=== PATIENT | female | born 2000 | race Two or more races ===

== ENCOUNTER 2024-12-12 11:37 | Inpatient (IN) | payer BC, OTHER ==
[~2024-12-12] VITALS: Ht 157.5 cm; Wt 126.2 kg
--- NOTE | 2024-12-12 11:51 | ED.PDOC ---
SOB-HPI HPI Comments 24 year old female presents to the ED with a chief complaint of shortness of breath onset 11/15/2024. Patient states she began experiencing shortness of breath on 11/15/24, saw PCP and was prescribed steroids, finished prescription. She noticed symptoms had not improved, saw PCP 2 days ago and was prescribed another round of steroids, did not picker operator prescription. Patient states she is currently experiencing nasal congestion, runny nose, noticed shortness of breath worsened. Upon ED arrival, O2 sat was 97% on RA, HR was 130. PMHx asthma. Denies chest pain, dizziness, headache, blurry vision, fever, chills, dysuria, hematuria, nausea, vomiting, diarrhea. No other symptoms or modifying factors present at this time. Chief Complaint: Shortness of Breath Time Seen by MD: 11:45 Reviewed notes: Medications, Allergies Information Source: Patient Mode of Arrival: Ambulatory Severity: Moderate Timing: Days Duration: Since onset Context: At Rest PE Risk Factors: None History of: Asthma Prehospital treatment: None Modifying Factors: Nothing Associated Signs and Symptoms: Nasal Congestion Past Medical History PAST MEDICAL HISTORY: Asthma Surgical History: Denies all surgeries POWERHOUSE ELECTRICIAN APPRENTICE History: No Pertinent POWERHOUSE ELECTRICIAN APPRENTICE History Family History Family History: Reviewed,noncontributory to illness, No family hx of Cancer, No family hx of DM, No family hx of Heart maria eugenia, No family hx of HTN, No family hx ofKidney maria eugenia, No family hx of Liver maria eugenia, No family hx of Lung maria eugenia, No family hx of Stroke Social History Smoker: Non-Smoker Alcohol: Denies ETOH Use Drugs: Denies Drug Use Lives In: Home Constitutional: denies: chills, diaphoresis, fatigue, fever, malaise, sweats, weakness, others EENTM: reports: nose congestion; denies: blurred vision, double vision, ear bleeding, ear discharge, ear drainage, ear pain, ear ringing, eye pain, eye redness, hearing loss, mouth pain, mouth swelling, nasal discharge, nose bleeding, nose pain, photophobia, tearing, throat pain, throat swelling, voice changes, others Respiratory: reports: shortness of breath; denies: cough, hemoptysis, orthopnea, SOB at rest, SOB with excertion, stridor, wheezing, others Cardiovascular: reports: others (tachycardia); denies: chest pain, dizzy spells, diaphoresis, Dyspnea on exertion, edema, irregular heart beat, left arm pain, lightheadedness, palpitations, PND, syncope Gastrointestinal: denies: abdomen distended, abdominal pain, blood streaked bowels, constipated, diarrhea, dysphagia, difficulty swallowing, hematemesis, melena, nausea, poor appetite, poor fluid intake, rectal bleeding, rectal pain, vomiting, others Genitourinary: denies: abnormal vagina bleeding, burning, dyspareunia, dysuria, flank pain, frequency, hematuria, incontinence, pain, , vagina discharge, urgency, others Neurological: denies: dizziness, fainting, headache, left sided numbness, left sided weakness, numbness, paresthesia, pre-existing deficit, right sided numbness, right sided weakness, seizure, speech problems, tingling, tremors, weakness, others Musculoskeletal: denies: back pain, gout, joint pain, joint swelling, muscle pain, muscle stiffness, neck pain, others Integumetry: denies: bruises, change in color, change in hair/nails, dryness, laceration, lesions, lumps, rash, wounds, others Allergic/Immunocompromised: denies: Difficulty Healing, Frequent Infections, Hives, Itching, others Hematologic/Lymphatic: denies: anemia, blood clots, easy bleeding, easy bruising, swollen glands, others Endocrine: denies: excessive hunger, excessive sweating, excessive thirst, excessive urination, flushing, intolerance to cold, intolerance to heat, unexplained weight gain, unexplained weight loss, others Psychiatric: denies: anxiety, bipolar disorder, depression, hopeless, panic disorder, schizophrenia, sleepless, suicidal, others All Other Systems: Reviewed and Negative Physical Exam General Appearance: Moderate Distress, Normal HEENT: Normal ENT Inspection, Pharynx Normal, TMs Normal Neck: Full Range of Motion, Non-Tender, Normal, Normal Inspection Respiratory: Chest Non-Tender, No Accessory Muscle Use, Wheezing Cardiovascular: No Edema, No JVD, No Murmur, No Gallop, Normal Peripheral Pulses, Tachycardia Breast Exam: Deferred Gastrointestinal: No Organomegaly, Non Tender, No Pulsatile Mass, Normal Bowel Sounds, Soft Genitalia: Deferred Pelvic: Deferred Rectal: Deferred Extremities: No calf tenderness, Normal capillary refill, Normal inspection, Normal range of motion, Non-tender, No pedal edema Musculoskeletal : Apperance: Normal Neurologic: Alert, vp customer service II-XII nml as Tested, No Motor Deficits, Normal Affect, Normal Mood, No Sensory Deficits Cerebellar Function: Normal Reflexes: Normal Skin: Dry, Normal Color, Warm Peripheral Pulses: 3+ Radial (R), 3+ Radial (L) Lymphatic: No Adenopathy Was a procedure done? Was a procedure done?: No Differential Dx Differential Diagnosis: Anxiety, Asthma, Bronchitis X-Ray, Labs, Meds, VS Vital Signs Date Time Temp Pulse Resp B/P (MAP) Pulse Ox O2 Delivery O2 Flow Rate FiO2 12/12/24 15:21 98.5 112 24 142/93 (109) 95 98.5 12/12/24 12:00 22 98 Room Air* 0 21 12/12/24 11:40 98.1 133 22 142/88 97 98.1 Lab Test 12/12/24 12:09 12/12/24 12:06 Range/Units White Blood Count 7.4 4.4-10.8 10^3/uL Red Blood Count 4.68 4.0-5.20 10^6/uL Hemoglobin 12.0 L 12.2-16.2 g/dL Hematocrit 37.0 36.0-46.0 % Mean Corpuscular Volume 79.0 L 80.0-100.0 fL Mean Corpuscular Hemoglobin 25.7 L 28.0-32.0 pg Mean Corpuscular Hemoglobin Concent 32.6 32.0-36.0 g/dL Red Cell Distribution Width 15.8 H 11.8-14.3 % Platelet Count 312 140-450 10^3/uL Mean Platelet Volume 8.0 6.9-10.8 fL Neutrophils (%) (Auto) 65.9 37.0-80.0 % Lymphocytes (%) (Auto) 23.6 10.0-50.0 % Monocytes (%) (Auto) 8.0 0.0-12.0 % Eosinophils (%) (Auto) 2.4 0.0-7.0 % Basophils (%) (Auto) 0.1 0.0-2.0 % Neutrophils # (Auto) 4.9 1.6-8.6 10 ^3/uL Lymphocytes # (Auto) 1.8 0.4-5.4 10 ^3/uL Monocytes # (Auto) 0.6 0-1.3 10 ^3/uL Eosinophils # (Auto) 0.2 0-0.8 10 ^3/uL Basophils # (Auto) 0 0-0.2 10 ^3/uL Nucleated Red Blood Cells 0.1 % Sodium Level 142 136-145 mmol/L Potassium Level 3.2 L 3.5-5.1 mmol/L Chloride Level 106 98-107 mmol/L Carbon Dioxide Level 25 20-31 mmol/L Anion Gap 11 5-15 Blood Urea Nitrogen 6 L 9-23 mg/dL Creatinine 0.90 0.550-1.02 mg/dL Glomerular Filtration Rate Calc 93 >90 mL/min BUN/Creatinine Ratio 6.7 L 10.0-20.0 Serum Glucose 167 H 74-106 mg/dL Calcium Level 9.0 8.7-10.4 mg/dL Troponin I High Sensitivity < 3 L </=34 ng/L Urine Color Pending Urine Clarity Pending Urine pH Pending Urine Specific [place] Pending Urine Protein Pending Urine Ketones Pending Urine Blood Pending Urine Nitrite Pending Urine Bilirubin Pending Urine Urobilinogen Pending Urine Leukocyte Esterase Pending Urine RBC Pending Urine Microscopic WBC Pending Urine Squamous Epithelial Cells Pending Urine Bacteria Pending Urine Glucose Pending Current Medications Medications (Trade) Dose Ordered Sig/Praveen Route Start Time Stop Time Status Last Admin Methylprednisolone Sodium Succinate (Solu Medrol) 125 mg ONCE ONCE IV 12/12/24 11:45 12/12/24 11:46 DC 12/12/24 12:19 Albuterol (Ventolin Medneb) 5 mg ONCE ONCE NEB 12/12/24 11:45 12/12/24 11:46 DC 12/12/24 12:00 Ipratropium [place] (Atrovent Medneb) 0.5 mg ONCE ONCE NEB 12/12/24 11:45 12/12/24 11:46 DC 12/12/24 12:00 Ceftriaxone Sodium 50 ml @ 100 mls/hr ONCE ONCE IV 12/12/24 11:45 12/12/24 12:14 DC 12/12/24 12:20 Magnesium Sulfate/ Dextrose 100 ml @ 100 mls/hr ONCE ONCE IV 12/12/24 12:30 12/12/24 13:29 DC 12/12/24 12:29 Patient alert. Came in because of shortness a breath. Vitals stable. Answering questions. Was given steroid. Was given breathing treatment. Given magnesium Has been battling shortness breath for almost a month. She is wheezing. WBC within normal limits. Tachycardia. Explained to the patient that she will be admitted for asthma exacerbation. Continue monitoring. [address] [address] Ph: [phone] DIAGNOSTIC IMAGING Diagnostic Imaging Report : [id number] Signed PATIENT: JUSTYNA SOLIS ACCT: [id number] UNIT: [id number] : 2000 LOC: ER ROOM / BED: / AGE / SEX: 24 / F ADM STATUS: REG ER SERVICE 1142 ORDERING PHYSICIAN: GLORIA BALDWIN MD PROCEDURE(s): CXRP - CHEST PORTABLE REASON: sob ORDER NUMBER(s): [id number], ACCESSION NUMBER(s): [id number] EXAM: XY CHEST PORTABLE Indication: sob Technique: Single frontal view of the chest was obtained Comparison: None FINDINGS: Lines and Tubes: None Lungs: No focal consolidation. Pleura: No effusion. No pneumothorax. Cardiomediastinal contours: Unremarkable Bones: No acute osseous abnormality. IMPRESSION: No acute cardiopulmonary disease. ATED BY: MALACHI WOO MD DICTATED DATE/TIME: 12/12/24 1206 SIGNED BY: MALACHI WOO MD SIGNED DATE/TIME: 12/12/24 120 CC: Time of 1ST Reevaluation: 12:15 Reevaluation 1ST: Unchanged Patient Education/Counseling: Diagnosis, Treatment, Prognosis Family Education/Counseling: No Family Present SEPSIS Sepsis Screen Date sepsis recognized/suspect: Dec 12, 2024 Time Sepsis recognized/suspect: 1144 Recent Procedure: No On Antibiotic Therapy: No Respiratory Rate >20: Yes Heart Rate >90: Yes Temp<36 C (96.8 F) or >38.3 C: No SBP <90 or MAP <65 mmHG: No New Acute Mental Status Change: No Is the patient on CPAP, BIPAP,: No Physician Orders Chest Portable (12/12/24 11:42) Urinalysis (12/12/24 11:42) Vital Signs Date Time Temp Pulse Resp B/P (MAP) Pulse Ox O2 Delivery O2 Flow Rate FiO2 12/12/24 15:21 98.5 112 24 142/93 (109) 95 98.5 12/12/24 12:00 22 98 Room Air* 0 21 12/12/24 11:40 98.1 133 22 142/88 97 98.1 Laboratory Tests Test 12/12/24 12:09 White Blood Count 7.4 10^3/uL (4.4-10.8) Medications Medications Dose Ordered Sig/Praveen Route Start Time Stop Time Status Last Admin Dose Admin Albuterol 5 mg ONCE ONCE NEB 12/12/24 11:45 12/12/24 11:46 DC 12/12/24 12:00 Ceftriaxone Sodium 50 ml @ 100 mls/hr ONCE ONCE IV 12/12/24 11:45 12/12/24 12:14 DC 12/12/24 12:20 Ipratropium [place] 0.5 mg ONCE ONCE NEB 12/12/24 11:45 12/12/24 11:46 DC 12/12/24 12:00 Magnesium Sulfate/ Dextrose 100 ml @ 100 mls/hr ONCE ONCE IV 12/12/24 12:30 12/12/24 13:29 DC 12/12/24 12:29 Methylprednisolone Sodium Succinate 125 mg ONCE ONCE IV 12/12/24 11:45 12/12/24 11:46 DC 12/12/24 12:19 Departure 1 Departure Time of Disposition: 14:22 Impression: Primary Impression: Asthma exacerbation Qualified Codes: J45.901 - Unspecified asthma with (acute) exacerbation Disposition: ADMITTED INPATIENT Admit to: Med Surg Condition: Guarded Critical Care Note Critical Care Time?: No Stability Stability form required: No Heart Score Heart Score: Heart Score Response (Comments) Value History N/A 0 EKG N/A 0 Age N/A 0 Risk Factors N/A 0 Troponin N/A 0 Total 0 I personally scribed for GLORIA BALDWIN MD ([email or web address]) on 12/12/24 at 11:51. Electronically submitted by No Darden ([email or web address]). I personally scribed for GLORIA BALDWIN MD ([email or web address]) on 12/12/24 at 15:33. Electronically submitted by No Darden ([email or web address]). GLORIA BALDWIN MD Dec 12, 2024 11:51
[2024-12-12] MEDS: IPRATROPIUM BROM 0.5 MG/2.5ML INH SOL NEB ONE (12:00)
[2024-12-12] MEDS: ALBUTEROL SULF 2.5 MG/0.5ML(0.5%) NEB SOLN NEB ONE ×2 (12:00→18:18)
--- NOTE | 2024-12-12 12:08 | DVH ---
EXAM: XY CHEST PORTABLE Indication: sob Technique: Single frontal view of the chest was obtained Comparison: None FINDINGS: Lines and Tubes: None Lungs: No focal consolidation. Pleura: No effusion. No pneumothorax. Cardiomediastinal contours: Unremarkable Bones: No acute osseous abnormality. IMPRESSION: No acute cardiopulmonary disease.
[2024-12-12] MEDS: methylPREDNISolone SOD SUCC 125 MG/2 ML VL IV ONE (12:19)
[2024-12-12] MEDS: cefTRIAXone 1GM/50ML D5W 50 ML IV ONE (12:20)
[2024-12-12 12:26] LABS: Mean Corpuscular Hemoglobin 25.7 pg (28.0-32.0); Mean Corpuscular Volume 79.0 fL (80.0-100.0)
[2024-12-12 12:29] LABS: Chloride 106 mmol/L (98-107); Hematocrit 37.0 % (36.0-46.0); Hemoglobin 12.0 g/dL (12.2-16.2); Nucleated Red Blood Cells % 0.1 %; Sodium 142 mmol/L (136-145)
[2024-12-12] MEDS: MAGNESIUM SULFATE 1GM/100ML 100 ML IV ONE (12:29)
[2024-12-12 12:30] LABS: Anion Gap 11 (5-15); Carbon Dioxide 25 mmol/L (20-31)
[2024-12-12 12:31] LABS: Calcium 9.0 mg/dL (8.7-10.4)
[2024-12-12 12:32] LABS: Potassium 3.2 mmol/L (3.5-5.1)
[2024-12-12 12:36] LABS: BUN/Creatinine Ratio 6.7 (10.0-20.0); Blood Urea Nitrogen 6 mg/dL (9-23); Glucose 167 mg/dL (74-106)
[2024-12-12 17:50] LABS: Urine Protein, UAD Negative (Negative)
[2024-12-12 19:29] VITALS: BP 142/93; PULSE 121; RESP 20; TEMP 98.5; O2SAT 98
[2024-12-12] MEDS ORDERED: MORPHINE SULFATE INJ 2 MG/ml SYRG IV PRN (19:30)
[2024-12-12] MEDS ORDERED: NITROGLYCERIN 0.4 MG SL TAB SL PRN (19:30)
[2024-12-12] MEDS: SODIUM CHLORIDE 0.9% 1,000 ML IV ONE (20:06)
[2024-12-12 21:03] LABS: Amphetamine Screen, Urine Neg (NEGATIVE); Barbiturate Scree,Urine Neg (NEGATIVE); Benzodiazephine Screen, Urine Neg (NEGATIVE); Cannabinoid Screen, Urine Neg (NEGATIVE); Cocaine Screen, Urine Neg (NEGATIVE); Opiate Scree,Urine Neg (NEGATIVE); Phencyclidine Screen, Urine Neg (NEGATIVE)
[2024-12-12 21:54] LABS: COVID19 ANTIGEN SOFIA FIA POSITIVE (NEGATIVE)
[2024-12-12] MEDS: ALBUTEROL SULF HFA 90MCG INH 200DOSE IN SCH (22:30)
[2024-12-12 22:48] VITALS: PULSE 127; RESP 22; O2SAT 98
[2024-12-12] MEDS: IPRATROPIUM BROM 0.5 MG/2.5ML INH SOL NEB SCH (22:48)
[2024-12-12] MEDS: ALBUTEROL SULF 2.5 MG/0.5ML(0.5%) NEB SOLN NEB SCH (22:48)
[2024-12-12] MEDS: BUDESONIDE (INHALATION) 0.5 MG/2 ML NEB NEB SCH (22:49)
[2024-12-12 22:56] VITALS: PULSE 129; RESP 22; O2SAT 100
[2024-12-13] VITALS (10 sets, daily range): BP systolic 128–174; BP diastolic 75–111; PULSE 106–133; RESP 18–92; TEMP 97.4–98.3; O2SAT 91–99
[2024-12-13] MEDS: MONTELUKAST SODIUM 10 MG TAB PO SCH (00:35)
[2024-12-13] MEDS: methylPREDNISolone SOD SUCC 125 MG/2 ML VL IV SCH (00:38)
[2024-12-13] MEDS: SODIUM CHLORIDE 0.9% 1,000 ML IV SCH ×2 (00:45→16:31)
--- NOTE | 2024-12-13 00:51 | DVHHP2 ---
Admitting Diagnosis: Acute Asthma Exacerbation, COVID -19 History of Present Illness History Source: Patient Exam Limitations: No limitations HPI Ms. Harlan Martin is a 24 year old female with a history of asthma who presents with a chief complaint of shortness of breath onset 11/15/2024. Patient states she began experiencing shortness of breath on 11/15/24, saw PCP and was prescribed steroids, finished prescription. She noticed symptoms had not improved, saw PCP 2 days ago and was prescribed another round of steroids, did not chicken picker prescription. Patient states she is currently experiencing nasal congestion, runny nose, noticed shortness of breath worsened. Patient reports she has been referred by her PCP to an ENT for her tonsils which she has been told are "pretty big". Patient denies any difficulty swallowing. Patient denies chest pain, dizziness, headache, blurry vision, fever, chills, dysuria, hematuria, nausea, vomiting, diarrhea. Home Meds Reported Medications Trazodone HCl (Trazodone Hydrochorlide) 150 Mg Tab, PO, TAB 12/13/24 Cetirizine HCl (Cetirizine Hydrochloride) 10 Mg Tab, 10 MG PO, TAB 12/13/24 Past Medical History Cardiac: No pertinent Hx Pulmonary: Asthma Central Nervous System: No pertinent Hx GI: No pertinent Hx Hemotology/Oncology: No pertinent Hx Hepatobiliary: No pertinent Hx Psychiatric: No pertinent Hx Musculoskeletal: No pertinent Hx Rheumotologic: No pertinent Hx Infectious Disease: No peritnent Hx ENT: No pertinent Hx Renal/: No pertinent Hx Endocrine: No pertinent Hx Dermatology: No pertinent Hx Smoker: No Hx (Negative) Alocohol: None Drugs: None Lives with: With family Domestic Violence: Neg Review of Systems Constitutional: No symptom reported Ears, Nose, & Throat: No symptom reported Eyes: No symptom reported Pulmonary/Respiratory: Dyspnea Cardiovascular: No symptom reported Gastrointestinal: No symptom reported Genitourinary: No symptom reported Musculoskeletal: No symptom reported Skin: No symptom reported Psychiatric: No symptom reported Endocrine: No symptom reported Hemotologic/Lymphatic: No symptom reported H&P Exam Vital Signs Vital Signs Date Time Temp Pulse Resp B/P (MAP) Pulse Ox O2 Delivery O2 Flow Rate FiO2 12/13/24 00:39 99.4 116 20 139/71 (93) 97 99.4 12/12/24 22:48 Room Air 8/8/25 22:48 0 21 General Appeara: Well developed, Well nourished, Normal Appearance Head Exam: Normal inspection Neck Exam: Normal inspection, Non-tender, Normal alignment Eye Exam: bilateral eye Normal inspection, bilateral eye PERRL, bilateral eye EOMI Ear Exam: bilateral ear Auricle normal Nasal Exam: Normal inspection Mouth: Normal Inspection Pulmonary/Respiratory: Normal inspection, Chest non-tender, Decreased breath sounds Cardiovascular/Chest: Normal inspection, Normal Rhythm, Tachycardia Peripheral Pulses: 2+ dorsalis pedis (R), 2+ dorsalis pedis (L), 2+ Radial (R), 2+ Radial (L) Abdominal Exam: Normal bowel sounds, Soft, No tenderness Abdominal Pain Onset Location: LLQ Back Exam: Normal inspection 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 HELPER Exam: Normal hearing, Normal speech, PERRL Neuro/Mental St: Alert, Oriented Appearance: Appropriate appearance, Appropriate insight Eye contact/ Speech: Cooperative, Good eye contact, Normal speech Thoughts/Psych: Normal thought pattern Skin Exam: Normal inspection, Normal color, Warm/dry SEPSIS Sepsis Screen Date sepsis recognized/suspect: Dec 13, 2024 Time Sepsis recognized/suspect: 003 Recent Procedure: No On Antibiotic Therapy: No Respiratory Rate >20: No Heart Rate >90: Yes Temp<36 C (96.8 F) or >38.3 C: No SBP <90 or MAP <65 mmHG: No New Acute Mental Status Change: No Is the patient on CPAP, BIPAP,: No Physician Orders Admit (12/12/24 19:23) Regular Diet (12/13/24 Breakfast) *Consult / (12/12/24 19:23) Basic Metabolic Panel (12/13/24 04:00) Nitroglycerin Sublingual (Ntrostat Subli (12/12/24 19:30) Morphine Sulfate Injection (12/12/24 19:30) Stat Ekg For Chest Pain (12/12/24 19:23) Notify Of Changes From Base (12/12/24 19:23) Lumber Marker For 24 Hours (12/12/24 19:23) Emergency Dysrhythmia Protocol (12/12/24 19:23) Rhythm Strips Once Every Shift (12/12/24 19:23) Oxygen By Nasal Cannula (12/12/24 19:23) Methylprednisolone Sod Succ (Solu Medrol (12/13/24 00:00) Budesonide (Inhalation) (Pulmicort) (12/12/24 22:00) Ipratropium Medneb (Atrovent Medneb) (12/12/24 22:00) Albuterol Medneb (Ventolin Medneb) (12/12/24 22:00) Ceftriaxone 1gm/50ml D5w (Rocephin) (12/13/24 09:00) Famotidine Tablet (Pepcid Tablet) (12/13/24 10:00) Urine (12/12/24 ) Sodium Chloride 0.9% (12/12/24 19:30) Montelukast Tablet (Singulair Tablet) (12/12/24 22:00) Zinc Sulfate (12/13/24 10:00) Ascorbic Acid Tablet (Vitamin C Tablet) (12/13/24 10:00) Cholecalciferol Tablet (Vitamin D3 Table (12/13/24 10:00) Sodium Chloride 0.9% (12/13/24 00:45) Vital Signs Date Time Temp Pulse Resp B/P (MAP) Pulse Ox O2 Delivery O2 Flow Rate FiO2 12/13/24 00:39 99.4 116 20 139/71 (93) 97 99.4 12/12/24 22:56 129 22 100 12/12/24 22:48 98 Room Air 12/12/24 22:48 127 22 98 12/12/24 22:48 98 Room Air* 0 21 12/12/24 20:43 98.1 138 21 156/82 (106) 97 98.1 12/12/24 19:29 98.5 121 20 142/93 98 21 98.5 12/12/24 18:18 22 98 Room Air* 0 21 21 Medications Medications Dose Ordered Sig/Praveen Route Start Time Stop Time Status Last Admin Dose Admin Albuterol 2.5 mg Q4HWA NEB 12/12/24 22:00 12/12/24 22:48 2.5 MG Albuterol 20 mg ONCE ONCE NEB 12/12/24 18:00 12/12/24 18:01 DC 12/12/24 18:18 20 MG Budesonide 0.5 mg BID NEB 12/12/24 22:00 12/12/24 22:49 0.5 MG Ipratropium [place] 0.5 mg Q4HWA NEB 12/12/24 22:00 12/12/24 22:48 0.5 MG Methylprednisolone Sodium Succinate 60 mg Q6HR IV 12/13/24 00:00 12/13/24 00:38 60 MG Montelukast Sodium 10 mg HS PO 12/12/24 22:00 12/13/24 00:35 10 MG Labs/Xrays Labs Test 12/12/24 20:59 12/12/24 18:50 12/12/24 18:08 12/12/24 12:09 Range/Units Influenza Type A Antigen Negative Negative Influenza Type B Antigen Negative Negative SARS-CoV-2 Antigen (Rapid) Positive NEGATIVE D-Dimer, Quantitative 0.40 0.0-0.49 mg/L FEU White Blood Count 7.4 4.4-10.8 10^3/uL Red Blood Count 4.68 4.0-5.20 10^6/uL Hemoglobin 12.0 L 12.2-16.2 g/dL Hematocrit 37.0 36.0-46.0 % Mean Corpuscular Volume 79.0 L 80.0-100.0 fL Mean Corpuscular Hemoglobin 25.7 L 28.0-32.0 pg Mean Corpuscular Hemoglobin Concent 32.6 32.0-36.0 g/dL Red Cell Distribution Width 15.8 H 11.8-14.3 % Platelet Count 312 140-450 10^3/uL Mean Platelet Volume 8.0 6.9-10.8 fL Neutrophils (%) (Auto) 65.9 37.0-80.0 % Lymphocytes (%) (Auto) 23.6 10.0-50.0 % Monocytes (%) (Auto) 8.0 0.0-12.0 % Eosinophils (%) (Auto) 2.4 0.0-7.0 % Basophils (%) (Auto) 0.1 0.0-2.0 % Neutrophils # (Auto) 4.9 1.6-8.6 10 ^3/uL Lymphocytes # (Auto) 1.8 0.4-5.4 10 ^3/uL Monocytes # (Auto) 0.6 0-1.3 10 ^3/uL Eosinophils # (Auto) 0.2 0-0.8 10 ^3/uL Basophils # (Auto) 0 0-0.2 10 ^3/uL Nucleated Red Blood Cells 0.1 % Sodium Level 142 136-145 mmol/L Potassium Level 3.2 L 3.5-5.1 mmol/L Chloride Level 106 98-107 mmol/L Carbon Dioxide Level 25 20-31 mmol/L Anion Gap 11 5-15 Blood Urea Nitrogen 6 L 9-23 mg/dL Creatinine 0.90 0.550-1.02 mg/dL Glomerular Filtration Rate Calc 93 >90 mL/min BUN/Creatinine Ratio 6.7 L 10.0-20.0 Serum Glucose 167 H 74-106 mg/dL Calcium Level 9.0 8.7-10.4 mg/dL Troponin I High Sensitivity < 3 L </=34 ng/L Test 12/12/24 12:06 Range/Units Urine Color Colorless Yellow Urine Clarity Clear Clear Urine pH 5.0 5.0-9.0 Urine Specific [place] 1.008 1.001-1.035 Urine Protein Negative Negative Urine Ketones Negative Negative Urine Blood Negative Negative /uL Urine Nitrite Negative Negative Urine Bilirubin Negative Negative Urine Urobilinogen Normal Negative mg/dL Urine Leukocyte Esterase Negative Negative /uL Urine RBC None seen 0 - 4 /hpf Urine Microscopic WBC 2 0-5 /HPF Urine Squamous Epithelial Cells Moderate <5 /hpf Urine Bacteria None seen None Seen /hpf Urine Glucose Normal Normal mg/dL Urine Opiates Screen Neg NEGATIVE Urine Fentanyl Screen Neg NEGATIVE Urine Barbiturates Screen Neg NEGATIVE Urine Phencyclidine Screen Neg NEGATIVE Urine Amphetamines Screen Neg NEGATIVE Urine Benzodiazepines Screen Neg NEGATIVE Urine Cocaine Screen Neg NEGATIVE Urine Cannabinoids Screen Neg NEGATIVE Assessment/Plan Problem List: (1) COVID-19 (2) Asthma exacerbation Plan This is a 24 yo female with known history of asthma who presents to the hospital with shortness of breath. Patient found to have 1. Acute Asthma Exacerbation 2. COVID -19 Plan Admit Telemetry unit Pulmonology consultation, IV steroids, Bronchodilators Broad Spectrum IV antibiotic GI ppx PO Vitamin C, D, Zinc IV Fluids NS Supplemental oxygen as needed to keep 02 saturations above 92% Discussed all above with patient who verbalizes agreement and understanding of care plan. All questions were answered. Discussed with admitting/supervising MD. Plan discussed with: Patient, Other Code Visit Code Visit Total Time (mins): 45 Additional Comments Additional Comments Additional Comments Patient is seen and evaluated by nurse practitioner and admitted patch washer. I have evaluated her later today. I agree with the nurse practitioner's evaluation, documentation, assessment and care plan as outlined. Acute asthma exacerbation with a COVID-19 infection Morbid obesity with a BMI 49 Patient is started on remdesivir treatment for COVID today. Continue IV steroids breathing treatments and rest of supportive care and treatment as it she is on for her asthma exacerbation. Patient counseled and educated regarding diet exercise weight loss. Once patient recovers from her acute problems consider referring her to composite bond worker for outpatient sleep studies to rule out obesity hypoventilation syndrome/sleep apnea. Discussed with the patient regarding care plan. URI CHAMBERLAIN Dec 13, 2024 00:51 RENETTA PUENTE MD Dec 13, 2024 15:47
[2024-12-13 04:19] LABS: Calcium 9.5 mg/dL (8.7-10.4); Chloride 104 mmol/L (98-107); Potassium 3.7 mmol/L (3.5-5.1); Sodium 142 mmol/L (136-145)
[2024-12-13 04:20] LABS: Anion Gap 15 (5-15); Carbon Dioxide 23 mmol/L (20-31)
[2024-12-13 04:25] LABS: BUN/Creatinine Ratio 10.6 (10.0-20.0); Blood Urea Nitrogen 9 mg/dL (9-23)
[2024-12-13 04:26] LABS: Glucose 188 mg/dL (74-106)
[2024-12-13] MEDS ORDERED: REMDESIVIR PER PHARMACY 0 ML IV SCH (10:00)
[2024-12-13] MEDS ORDERED: TRAZ150T84 PO (10:23)
[2024-12-13] MEDS ORDERED: CETI-120 PO (10:23)
[2024-12-13] MEDS: ZINC SULFATE 220mg CAP or TAB PO SCH (11:44)
[2024-12-13] MEDS: FAMOTIDINE 20 MG TAB PO SCH (11:44)
[2024-12-13] MEDS: ASCORBIC ACID 500 MG TAB PO SCH (11:44)
[2024-12-13] MEDS: CHOLECALCIFEROL (VITD3) 1,000UNIT=25mCg TAB PO SCH (11:44)
[2024-12-13] MEDS: REMDESIVIR 200mg in NS 210mL LOADING DOSE ADULT IV ONE (13:32)
[2024-12-13] MEDS: ENOXAPARIN SOD 40 MG/0.4 ML SYRINGE SC ONE (16:32)
--- NOTE | 2024-12-13 17:12 | DVHINCON2 ---
Date of service: Dec 13, [address] Whitehead Reason for Consultation Acute respiratory failure History of Present Illness History Source: Patient HPI Patient is a 24-year old lady with a history of asthma who presented with shortness of breath x1 month. She was seen previous as outpatient where she received course of steroids however did not experience improvement in symptoms. Patient presented to the emergency room with wheezing and she tested positive for covid. Pulmonology was consulted to assist in management. Home Meds Reported Medications Trazodone HCl (Trazodone Hydrochorlide) 150 Mg Tab, PO, TAB 12/13/24 Cetirizine HCl (Cetirizine Hydrochloride) 10 Mg Tab, 10 MG PO, TAB 12/13/24 Past Medical History Cardiac: No pertinent Hx Pulmonary: Asthma Central Nervous System: No pertinent Hx GI: No pertinent Hx Hemotology/Oncology: No pertinent Hx Hepatobiliary: No pertinent Hx Psychiatric: No pertinent Hx Musculoskeletal: No pertinent Hx Rheumotologic: No pertinent Hx Infectious Disease: No peritnent Hx ENT: No pertinent Hx Renal/: No pertinent Hx Endocrine: No pertinent Hx Dermatology: No pertinent Hx Past Surgical History: No pertinent Hx Family History: No pertinent Hx Smoker: No Hx (Negative) Alocohol: None Drugs: None Lives with: With family Domestic Violence: Neg Review of Systems Constitutional: No symptom reported Ears, Nose, & Throat: No symptom reported Eyes: No symptom reported Pulmonary/Respiratory: Dyspnea Cardiovascular: No symptom reported Gastrointestinal: No symptom reported Genitourinary: No symptom reported Musculoskeletal: No symptom reported Skin: No symptom reported Psychiatric: No symptom reported Endocrine: No symptom reported Hemotologic/Lymphatic: No symptom reported H&P Exam Vital Signs Vital Signs Date Time Temp Pulse Resp B/P (MAP) Pulse Ox O2 Delivery O2 Flow Rate FiO2 12/13/24 14:53 124 18 94 12/13/24 14:53 Nasal Cannula* 2 28 12/13/24 10:00 98.3 139/93 (108) 98.3 General Appeara: Well developed, Well nourished, Normal Appearance Head Exam: Normal inspection Neck Exam: Normal inspection, Non-tender, Normal alignment Eye Exam: bilateral eye Normal inspection, bilateral eye PERRL, bilateral eye EOMI Ear Exam: bilateral ear Auricle normal, bilateral ear Canal normal, bilateral ear TM normal Nasal Exam: Normal inspection Mouth: Normal Inspection Pulmonary/Respiratory: Decreased breath sounds Cardiovascular/Chest: Normal inspection Peripheral Pulses: 4+ Radial (R), 4+ Radial (L), 4+ Brachial (R), 4+ Brachial (L) Abdominal Exam: Normal bowel sounds Labs/Xrays Labs Test 12/13/24 03:28 12/12/24 20:59 12/12/24 18:50 12/12/24 18:08 Range/Units Sodium Level 142 136-145 mmol/L Potassium Level 3.7 3.5-5.1 mmol/L Chloride Level 104 98-107 mmol/L Carbon Dioxide Level 23 20-31 mmol/L Anion Gap 15 5-15 Blood Urea Nitrogen 9 9-23 mg/dL Creatinine 0.85 0.550-1.02 mg/dL Glomerular Filtration Rate Calc 99 >90 mL/min BUN/Creatinine Ratio 10.6 10.0-20.0 Serum Glucose 188 H 74-106 mg/dL Calcium Level 9.5 8.7-10.4 mg/dL Influenza Type A Antigen Negative Negative Influenza Type B Antigen Negative Negative SARS-CoV-2 Antigen (Rapid) Positive NEGATIVE D-Dimer, Quantitative 0.40 0.0-0.49 mg/L FEU Test 12/12/24 12:09 12/12/24 12:06 Range/Units White Blood Count 7.4 4.4-10.8 10^3/uL Red Blood Count 4.68 4.0-5.20 10^6/uL Hemoglobin 12.0 L 12.2-16.2 g/dL Hematocrit 37.0 36.0-46.0 % Mean Corpuscular Volume 79.0 L 80.0-100.0 fL Mean Corpuscular Hemoglobin 25.7 L 28.0-32.0 pg Mean Corpuscular Hemoglobin Concent 32.6 32.0-36.0 g/dL Red Cell Distribution Width 15.8 H 11.8-14.3 % Platelet Count 312 140-450 10^3/uL Mean Platelet Volume 8.0 6.9-10.8 fL Neutrophils (%) (Auto) 65.9 37.0-80.0 % Lymphocytes (%) (Auto) 23.6 10.0-50.0 % Monocytes (%) (Auto) 8.0 0.0-12.0 % Eosinophils (%) (Auto) 2.4 0.0-7.0 % Basophils (%) (Auto) 0.1 0.0-2.0 % Neutrophils # (Auto) 4.9 1.6-8.6 10 ^3/uL Lymphocytes # (Auto) 1.8 0.4-5.4 10 ^3/uL Monocytes # (Auto) 0.6 0-1.3 10 ^3/uL Eosinophils # (Auto) 0.2 0-0.8 10 ^3/uL Basophils # (Auto) 0 0-0.2 10 ^3/uL Nucleated Red Blood Cells 0.1 % Troponin I High Sensitivity < 3 L </=34 ng/L Urine Color Colorless Yellow Urine Clarity Clear Clear Urine pH 5.0 5.0-9.0 Urine Specific [place] 1.008 1.001-1.035 Urine Protein Negative Negative Urine Ketones Negative Negative Urine Blood Negative Negative /uL Urine Nitrite Negative Negative Urine Bilirubin Negative Negative Urine Urobilinogen Normal Negative mg/dL Urine Leukocyte Esterase Negative Negative /uL Urine RBC None seen 0 - 4 /hpf Urine Microscopic WBC 2 0-5 /HPF Urine Squamous Epithelial Cells Moderate <5 /hpf Urine Bacteria None seen None Seen /hpf Urine Glucose Normal Normal mg/dL Urine Opiates Screen Neg NEGATIVE Urine Fentanyl Screen Neg NEGATIVE Urine Barbiturates Screen Neg NEGATIVE Urine Phencyclidine Screen Neg NEGATIVE Urine Amphetamines Screen Neg NEGATIVE Urine Benzodiazepines Screen Neg NEGATIVE Urine Cocaine Screen Neg NEGATIVE Urine Cannabinoids Screen Neg NEGATIVE Assessment/Plan Plan Impression Acute hypoxemic respiratory failure Pneumonia Atelectasis Asthma COVID Patient seen and examined Events Low oxygen requirements On 2 liters nasal cannula Vital signs stable Labs and imaging reviewed Management Supplemental oxygen Titrate to maintain sats 90% or above Incentive spirometry Antibiotics Bronchodilators Remdesivir course per protocol Steroids Monitor renal function Monitor electrolytes Supplement as needed Vitamins, hydration, nutrition Monitor inflammatory markers DVT prophylaxis Plan discussed with: Patient JAN HANCOCK MD Dec 13, 2024 17:11
[2024-12-13] MEDS: AZITHROMYCIN 500MG/ 250ML 250 ML IV SCH (22:09)
[2024-12-14] VITALS (17 sets, daily range): BP systolic 129–165; BP diastolic 84–101; PULSE 83–116; RESP 14–24; TEMP 97.8–98.5; O2SAT 90–100
[2024-12-14 07:08] LABS: Alanine Aminotransferase 19 U/L (7-40); Alkaline Phosphatase 93 U/L (46-116); Anion Gap 10 (5-15); BUN/Creatinine Ratio 14.9 (10.0-20.0); Blood Urea Nitrogen 11 mg/dL (9-23); Calcium 8.8 mg/dL (8.7-10.4); Carbon Dioxide 28 mmol/L (20-31); Chloride 104 mmol/L (98-107); Potassium 3.8 mmol/L (3.5-5.1); Sodium 142 mmol/L (136-145); Total Protein 7.8 g/dL (5.7-8.2)
[2024-12-14 07:09] LABS: Albumin 4.4 g/dL (3.2-4.8)
[2024-12-14 07:12] LABS: Bilirubin, Total 0.2 mg/dL (0.2-1.0); Glucose 138 mg/dL (74-106)
[2024-12-14] MEDS: ENOXAPARIN SOD 40 MG/0.4 ML SYRINGE SC SCH (09:03)
[2024-12-14] MEDS: cefTRIAXone 1GM/50ML D5W 50 ML IV SCH (09:08)
--- NOTE | 2024-12-14 15:18 | MEDREC ---
[facility] Intervention Section I [facility] Intervention: Review courses of therapy (FOR COVID-19, WE DO NOT ROUTINELY ADMINISTER EMPIRIC THERAPY FOR BACTERIAL PNEUMONIA - PLEASE CONSIDER D/C [id number]) VALENTÍN HARVEY PHARMACIST Dec 14, 2024 15:18
--- NOTE | 2024-12-14 15:49 | DVHPN2 ---
Progress Note - Dictate Date Seen: Dec 14, 2024 Medical Necessity Reason Pt with a Central, PICC or Fol: No vital signs Vital Sign Date Time Temp Pulse Resp B/P (MAP) Pulse Ox O2 Delivery O2 Flow Rate FiO2 12/14/24 14:01 96 Nasal Cannula* 2 28 12/14/24 13:59 110 18 12/14/24 13:00 98.1 142/90 (107) 98.1 Total Intake and Output 12/13/24 12/13/24 12/14/24 15:00 23:00 07:00 Intake Total 1600 ml Balance 1600 ml medications Current Medications Medications Dose Ordered Sig/Praveen Route Start Time Stop Time Status Last Admin Dose Admin Nitroglycerin 0.4 mg Q5MINP PRN SL 12/12/24 19:30 Morphine Sulfate 2 mg Q30M PRN IV 12/12/24 19:30 Methylprednisolone Sodium Succinate 60 mg Q6HR IV 12/13/24 00:00 12/14/24 13:01 60 MG Budesonide 0.5 mg BID NEB 12/12/24 22:00 12/14/24 06:12 0.5 MG Ceftriaxone Sodium 50 ml @ 100 mls/hr DAILY@09 IV 12/13/24 09:00 12/14/24 09:08 100 MLS/HR Famotidine 20 mg DAILY PO 12/13/24 10:00 12/14/24 09:03 20 MG Montelukast Sodium 10 mg HS PO 12/12/24 22:00 12/13/24 22:09 10 MG Zinc Sulfate 220 mg DAILY PO 12/13/24 10:00 12/14/24 09:03 220 MG Ascorbic Acid 500 mg BID PO 12/13/24 10:00 12/14/24 09:03 500 MG Cholecalciferol 2,000 unit DAILY PO 12/13/24 10:00 12/14/24 09:03 2,000 UNIT Remdesivir 0 ml @ 0 mls/hr PER PHARMACY IV 12/13/24 10:00 12/15/24 10:01 Remdesivir 100 mg/ Sodium Chloride 250 ml @ 250 mls/hr DAILY@1500 IV 12/14/24 15:00 12/15/24 15:59 Albuterol 180 mcg TID IN 12/13/24 14:00 12/14/24 13:58 180 MCG Sodium Chloride 1,000 ml @ 60 mls/hr [id number] IV 12/13/24 16:00 12/15/24 01:19 12/13/24 16:31 60 MLS/HR Enoxaparin Sodium 40 mg DAILY SC 12/14/24 10:00 12/14/24 09:03 40 MG Azithromycin 250 ml @ 125 mls/hr DAILY@1800 IV 12/13/24 18:00 12/13/24 22:09 125 MLS/HR laboratory and microbiology Laboratory Tests 12/14/24 05:12 12/12/24 12:09 Test 12/14/24 05:12 Range/Units Serum Glucose 138 H 74-106 mg/dL Assessment/Plan Impression Acute hypoxemic respiratory failure Pneumonia Atelectasis Asthma COVID Patient seen and examined Events Low oxygen requirements On 2 liters nasal cannula No acute events Labs and imaging reviewed Management Supplemental oxygen Titrate to maintain sats 90% or above Incentive spirometry Continue antibiotics F/u cultures Bronchodilators Remdesivir course per protocol Steroids Monitor renal function Monitor electrolytes Supplement as needed Vitamins, hydration, nutrition Monitor inflammatory markers DVT prophylaxis Plan discussed with: Patient JNA HANCOCK MD Dec 14, 2024 15:49
[2024-12-14] MEDS: REMDESIVIR 100mg in NS 230mL (3 DAY REGIMEN) IV SCH (16:37)
--- NOTE | 2024-12-14 18:35 | DVHPN2 ---
Progress Note - Dictate Date Seen: Dec 14, 2024 Medical Necessity Reason Pt with a Central, PICC or Fol: No Subjective Admitted for asthma exacerbation and found to have COVID-19 infection. Currently remained stable on nasal cannula oxygen. vital signs Vital Sign Date Time Temp Pulse Resp B/P (MAP) Pulse Ox O2 Delivery O2 Flow Rate FiO2 12/14/24 16:30 98.4 106 18 165/101 (122) 93 98.4 12/14/24 14:01 Nasal Cannula* 2 28 Total Intake and Output 12/13/24 12/13/24 12/14/24 15:00 23:00 07:00 Intake Total 1600 ml Balance 1600 ml medications Current Medications Medications Dose Ordered Sig/Praveen Route Start Time Stop Time Status Last Admin Dose Admin Nitroglycerin 0.4 mg Q5MINP PRN SL 12/12/24 19:30 Morphine Sulfate 2 mg Q30M PRN IV 12/12/24 19:30 Methylprednisolone Sodium Succinate 60 mg Q6HR IV 12/13/24 00:00 12/14/24 13:01 60 MG Budesonide 0.5 mg BID NEB 12/12/24 22:00 12/14/24 06:12 0.5 MG Ceftriaxone Sodium 50 ml @ 100 mls/hr DAILY@09 IV 12/13/24 09:00 12/14/24 09:08 100 MLS/HR Famotidine 20 mg DAILY PO 12/13/24 10:00 12/14/24 09:03 20 MG Montelukast Sodium 10 mg HS PO 12/12/24 22:00 12/13/24 22:09 10 MG Zinc Sulfate 220 mg DAILY PO 12/13/24 10:00 12/14/24 09:03 220 MG Ascorbic Acid 500 mg BID PO 12/13/24 10:00 12/14/24 09:03 500 MG Cholecalciferol 2,000 unit DAILY PO 12/13/24 10:00 12/14/24 09:03 2,000 UNIT Remdesivir 0 ml @ 0 mls/hr PER PHARMACY IV 12/13/24 10:00 12/15/24 10:01 Remdesivir 100 mg/ Sodium Chloride 250 ml @ 250 mls/hr DAILY@1500 IV 12/14/24 15:00 12/15/24 15:59 12/14/24 16:37 250 MLS/HR Albuterol 180 mcg TID IN 12/13/24 14:00 12/14/24 13:58 180 MCG Sodium Chloride 1,000 ml @ 60 mls/hr [id number] IV 12/13/24 16:00 12/15/24 01:19 12/13/24 16:31 60 MLS/HR Enoxaparin Sodium 40 mg DAILY SC 12/14/24 10:00 12/14/24 09:03 40 MG Azithromycin 250 ml @ 125 mls/hr DAILY@1800 IV 12/13/24 18:00 12/13/24 22:09 125 MLS/HR objective Comfortable in bed. No acute cardiopulmonary distress. Heart regular rate rhythm S1-S2. Lungs fair air movement with the end expiratory wheezing. Abdomen soft positive bowel sounds obese. Extremities no edema. laboratory and microbiology Laboratory Tests 12/14/24 05:12 12/12/24 12:09 Test 12/14/24 05:12 Range/Units Serum Glucose 138 H 74-106 mg/dL Assessment/Plan Acute hypoxemic respiratory failure due to asthma exacerbation Morbid obesity with a BMI 53 Possible sleep apnea/obesity hypoventilation syndrome Patient is clinically stable. On minimal amount of oxygen. Continued to receive remdesivir for COVID and and treatment. Continue current steroids breathing treatments empiric antibiotic oxygen. Encouraged out of bed to chair and activity in the room. Otherwise further clinical management per clinical course. Once again counseled regarding diet exercise weight loss. Problems(with codes): (1) Asthma exacerbation (2) COVID-19 Plan discussed with: Other RENETTA PUENTE MD Dec 14, 2024 18:35
[2024-12-14 22:33] LABS: Urine Protein, UAD Negative (Negative)
[2024-12-15] VITALS (15 sets, daily range): BP systolic 118–151; BP diastolic 67–97; PULSE 84–108; RESP 15–20; TEMP 97.4–98.4; O2SAT 95–100
--- NOTE | 2024-12-15 12:36 | DVHPN2 ---
Progress Note - Dictate Date Seen: Dec 15, 2024 Medical Necessity Reason Pt with a Central, PICC or Fol: No vital signs Vital Sign Date Time Temp Pulse Resp B/P (MAP) Pulse Ox O2 Delivery O2 Flow Rate FiO2 12/15/24 09:00 97.4 86 16 142/85 (104) 97 97.4 12/15/24 07:03 Nasal Cannula 2.0 12/15/24 07:03 28 Total Intake and Output 12/14/24 12/14/24 12/15/24 15:00 23:00 07:00 Intake Total 50 ml 600 ml 500 ml Balance 50 ml 600 ml 500 ml medications Current Medications Medications Dose Ordered Sig/Praveen Route Start Time Stop Time Status Last Admin Dose Admin Nitroglycerin 0.4 mg Q5MINP PRN SL 12/12/24 19:30 Morphine Sulfate 2 mg Q30M PRN IV 12/12/24 19:30 Methylprednisolone Sodium Succinate 60 mg Q6HR IV 12/13/24 00:00 12/15/24 11:34 60 MG Budesonide 0.5 mg BID NEB 12/12/24 22:00 12/15/24 07:13 0.5 MG Ceftriaxone Sodium 50 ml @ 100 mls/hr DAILY@09 IV 12/13/24 09:00 12/15/24 11:33 100 MLS/HR Famotidine 20 mg DAILY PO 12/13/24 10:00 12/15/24 11:34 20 MG Montelukast Sodium 10 mg HS PO 12/12/24 22:00 12/14/24 21:42 10 MG Zinc Sulfate 220 mg DAILY PO 12/13/24 10:00 12/15/24 11:34 220 MG Ascorbic Acid 500 mg BID PO 12/13/24 10:00 12/15/24 11:34 500 MG Cholecalciferol 2,000 unit DAILY PO 12/13/24 10:00 12/15/24 11:35 2,000 UNIT Remdesivir 100 mg/ Sodium Chloride 250 ml @ 250 mls/hr DAILY@1500 IV 12/14/24 15:00 12/15/24 15:59 12/14/24 16:37 250 MLS/HR Albuterol 180 mcg TID IN 12/13/24 14:00 12/15/24 06:00 180 MCG Enoxaparin Sodium 40 mg DAILY SC 12/14/24 10:00 12/15/24 11:34 40 MG Azithromycin 250 ml @ 125 mls/hr DAILY@1800 IV 12/13/24 18:00 12/14/24 21:15 125 MLS/HR laboratory and microbiology Laboratory Tests 12/14/24 05:12 12/12/24 12:09 Test 12/14/24 05:12 Range/Units Serum Glucose 138 H 74-106 mg/dL Assessment/Plan Impression Acute hypoxemic respiratory failure Pneumonia Atelectasis Asthma COVID Patient seen and examined Events Low oxygen requirements On 2 liters nasal cannula No acute events Labs and imaging reviewed Management Supplemental oxygen Titrate to maintain sats 90% or above Incentive spirometry Continue antibiotics F/u cultures Bronchodilators Remdesivir course per protocol Steroids Monitor renal function Monitor electrolytes Supplement as needed Vitamins, hydration, nutrition Monitor inflammatory markers DVT prophylaxis Plan discussed with: Patient JAN HANCOCK MD Dec 15, 2024 12:36
--- NOTE | 2024-12-15 16:06 | DVHPN2 ---
Progress Note - Dictate Date Seen: Dec 15, 2024 Medical Necessity Reason Pt with a Central, PICC or Fol: No Subjective Feeling better. Cough is improved. Shortness for breath is improved. Getting 3rd dose of remdesivir today. vital signs Vital Sign Date Time Temp Pulse Resp B/P (MAP) Pulse Ox O2 Delivery O2 Flow Rate FiO2 12/15/24 14:52 96 Nasal Cannula* 2 28 12/15/24 14:52 86 18 12/15/24 13:00 97.7 130/91 (104) 97.7 Total Intake and Output 12/14/24 12/14/24 12/15/24 15:00 23:00 07:00 Intake Total 50 ml 600 ml 500 ml Balance 50 ml 600 ml 500 ml medications Current Medications Medications Dose Ordered Sig/Praveen Route Start Time Stop Time Status Last Admin Dose Admin Nitroglycerin 0.4 mg Q5MINP PRN SL 12/12/24 19:30 Morphine Sulfate 2 mg Q30M PRN IV 12/12/24 19:30 Methylprednisolone Sodium Succinate 60 mg Q6HR IV 12/13/24 00:00 12/15/24 11:34 60 MG Budesonide 0.5 mg BID NEB 12/12/24 22:00 12/15/24 07:13 0.5 MG Ceftriaxone Sodium 50 ml @ 100 mls/hr DAILY@09 IV 12/13/24 09:00 12/15/24 11:33 100 MLS/HR Famotidine 20 mg DAILY PO 12/13/24 10:00 12/15/24 11:34 20 MG Montelukast Sodium 10 mg HS PO 12/12/24 22:00 12/14/24 21:42 10 MG Zinc Sulfate 220 mg DAILY PO 12/13/24 10:00 12/15/24 11:34 220 MG Ascorbic Acid 500 mg BID PO 12/13/24 10:00 12/15/24 11:34 500 MG Cholecalciferol 2,000 unit DAILY PO 12/13/24 10:00 12/15/24 11:35 2,000 UNIT Albuterol 180 mcg TID IN 12/13/24 14:00 12/15/24 14:00 180 MCG Enoxaparin Sodium 40 mg DAILY SC 12/14/24 10:00 12/15/24 11:34 40 MG Azithromycin 250 ml @ 125 mls/hr DAILY@1800 IV 12/13/24 18:00 12/14/24 21:15 125 MLS/HR objective Comfortable in bed. No acute cardiopulmonary distress. Heart regular rate rhythm S1-S2. Lungs fair air movement with the end expiratory wheezing. Abdomen soft positive bowel sounds obese. Extremities no edema. laboratory and microbiology Laboratory Tests 12/14/24 05:12 12/12/24 12:09 Test 12/14/24 05:12 Range/Units Serum Glucose 138 H 74-106 mg/dL Assessment/Plan Acute hypoxemic respiratory failure due to asthma exacerbation Morbid obesity with a BMI 53 Possible sleep apnea/obesity hypoventilation syndrome Patient is clinically stable. Advised to be out of bed ambulate and check room air oxygen. If it is below 89 person we will arrange for home oxygen. Otherwise monitor her overnight and if she remains stable consider discharge home tomorrow. Discussed with the patient and nurse regarding care plan. Plan discussed with: Patient RENETTA PUENTE MD Dec 15, 2024 16:06
[2024-12-16] VITALS (11 sets, daily range): BP systolic 146–156; BP diastolic 85–107; PULSE 73–104; RESP 16–20; TEMP 36.3; O2SAT 93–99
--- NOTE | 2024-12-16 10:26 | DVH ---
Bilateral Upper Extremity Venous Duplex Date: 12/16/2024 08:50 AM Clinical History: bilateral arm swelling Comparison: None Findings: Duplex Doppler evaluation of the venous systems of the right and left lower neck and upper extremitie s including color Doppler and spectral/pulsed waveform analysis was performed. RIGHT SIDE: The internal jugular vein demonstrates appropriate compressibility and waveform variability. The subclavian vein is patent on color Doppler evaluation without intraluminal thrombus and demonstra cheli waveform variability. The visualized portion of the brachiocephalic vein is patent on color Doppler evaluation without intr aluminal thrombus and demonstrates waveform variability. The axillary vein demonstrates appropriate compressibility and waveform variability. The brachial veins demonstrate appropriate compressibility and patency on Doppler evaluation. The basilic vein demonstrates appropriate compressibility and patency on Doppler evaluation. The cephalic vein demonstrates appropriate compressibility and patency on Doppler evaluation. LEFT SIDE: The internal jugular vein demonstrates appropriate compressibility and waveform variability. The subclavian vein is patent on color Doppler evaluation without intraluminal thrombus and demonstra cheli waveform variability. The visualized portion of the brachiocephalic vein is patent on color Doppler evaluation without intr aluminal thrombus and demonstrates waveform variability. The axillary vein demonstrates appropriate compressibility and waveform variability. The brachial veins demonstrate appropriate compressibility and patency on Doppler evaluation. The basilic vein demonstrates appropriate compressibility and patency on Doppler evaluation. The cephalic vein demonstrates appropriate compressibility and patency on Doppler evaluation. IMPRESSION: No venous thrombus identified in the right or left upper extremity vessels evaluated above. If clinical concern/symptoms persist or worsen, short-interval follow-up study is suggested. END IMPRESSION:
[2024-12-16] MEDS ORDERED: FAMO-161 PO (14:47)
[2024-12-16] MEDS ORDERED: AMOX500T86 PO (14:47)
[2024-12-16] MEDS ORDERED: MONT10TA23 PO (14:47)
[2024-12-16] MEDS ORDERED: AML5T PO (14:47)
[2024-12-16] MEDS ORDERED: ALBUAER3 IN (14:47)
[2024-12-16] MEDS ORDERED: PRED20TA2 PO (14:47)
--- NOTE | 2024-12-16 14:48 | DVHDS2 ---
Discharge Summary Date of Admission Dec 12, 2024 at 19:23 Date of Discharge: Dec 16, 2024 Labs/Diagnostic Data: Laboratory Results Test 12/14/24 22:25 12/14/24 05:12 12/12/24 20:59 12/12/24 18:50 Urine Color Light-yellow (Yellow) Urine Clarity Clear (Clear) Urine pH 6.0 (5.0-9.0) Urine Specific [place] 1.027 (1.001-1.035) Urine Protein Negative (Negative) Urine Ketones Negative (Negative) Urine Blood Negative /uL (Negative) Urine Nitrite Negative (Negative) Urine Bilirubin Negative (Negative) Urine Urobilinogen Normal mg/dL (Negative) Urine Leukocyte Esterase Negative /uL (Negative) Urine Glucose Normal mg/dL (Normal) Sodium Level 142 mmol/L (136-145) Potassium Level 3.8 mmol/L (3.5-5.1) Chloride Level 104 mmol/L (98-107) Carbon Dioxide Level 28 mmol/L (20-31) Anion Gap 10 (5-15) Blood Urea Nitrogen 11 mg/dL (9-23) Creatinine 0.74 mg/dL (0.550-1.02) Glomerular Filtration Rate Calc 117 mL/min (>90) BUN/Creatinine Ratio 14.9 (10.0-20.0) Serum Glucose 138 mg/dL (74-106) Calcium Level 8.8 mg/dL (8.7-10.4) Total Bilirubin 0.2 mg/dL (0.2-1.0) Aspartate Amino Transferase (AST) 13 U/L (13-40) Alanine Aminotransferase (ALT) 19 U/L (7-40) Alkaline Phosphatase 93 U/L (46-116) Total Protein 7.8 g/dL (5.7-8.2) Albumin 4.4 g/dL (3.2-4.8) Influenza Type A Antigen Negative (Negative) Influenza Type B Antigen Negative (Negative) SARS-CoV-2 Antigen (Rapid) Positive (NEGATIVE) Test 12/12/24 18:08 12/12/24 12:09 12/12/24 12:06 D-Dimer, Quantitative 0.40 mg/L FEU (0.0-0.49) White Blood Count 7.4 10^3/uL (4.4-10.8) Red Blood Count 4.68 10^6/uL (4.0-5.20) Hemoglobin 12.0 g/dL (12.2-16.2) Hematocrit 37.0 % (36.0-46.0) Mean Corpuscular Volume 79.0 fL (80.0-100.0) Mean Corpuscular Hemoglobin 25.7 pg (28.0-32.0) Mean Corpuscular Hemoglobin Concent 32.6 g/dL (32.0-36.0) Red Cell Distribution Width 15.8 % (11.8-14.3) Platelet Count 312 10^3/uL (140-450) Mean Platelet Volume 8.0 fL (6.9-10.8) Neutrophils (%) (Auto) 65.9 % (37.0-80.0) Lymphocytes (%) (Auto) 23.6 % (10.0-50.0) Monocytes (%) (Auto) 8.0 % (0.0-12.0) Eosinophils (%) (Auto) 2.4 % (0.0-7.0) Basophils (%) (Auto) 0.1 % (0.0-2.0) Neutrophils # (Auto) 4.9 10 ^3/uL (1.6-8.6) Lymphocytes # (Auto) 1.8 10 ^3/uL (0.4-5.4) Monocytes # (Auto) 0.6 10 ^3/uL (0-1.3) Eosinophils # (Auto) 0.2 10 ^3/uL (0-0.8) Basophils # (Auto) 0 10 ^3/uL (0-0.2) Nucleated Red Blood Cells 0.1 % Troponin I High Sensitivity < 3 ng/L (</=34) Urine RBC None seen /hpf (0 - 4) Urine Microscopic WBC 2 /HPF (0-5) Urine Squamous Epithelial Cells Moderate /hpf (<5) Urine Bacteria None seen /hpf (None Seen) Urine Opiates Screen Neg (NEGATIVE) Urine Fentanyl Screen Neg (NEGATIVE) Urine Barbiturates Screen Neg (NEGATIVE) Urine Phencyclidine Screen Neg (NEGATIVE) Urine Amphetamines Screen Neg (NEGATIVE) Urine Benzodiazepines Screen Neg (NEGATIVE) Urine Cocaine Screen Neg (NEGATIVE) Urine Cannabinoids Screen Neg (NEGATIVE) Other Laboratory Tests 12/14/24 05:12 12/12/24 12:09 Brief Hx & Hospital Course: Ms. Harlan Martin is a 24 year old female with a history of asthma who presents with a chief complaint of shortness of breath onset 11/15/2024. Patient states she began experiencing shortness of breath on 11/15/24, saw PCP and was prescribed steroids, finished prescription. She noticed symptoms had not improved, saw PCP 2 days ago and was prescribed another round of steroids, did not filler picker prescription. Patient states she is currently experiencing nasal congestion, runny nose, noticed shortness of breath worsened. Patient reports she has been referred by her PCP to an ENT for her tonsils which she has been told are "pretty big". Patient denies any difficulty swallowing. Patient denies chest pain, dizziness, headache, blurry vision, fever, chills, dysuria, hematuria, nausea, vomiting, diarrhea. She is admitted and evaluated by launch steward. Patient noted to have COVID-19 with the asthma exacerbation. She received remdesivir treatment per code. She is started on steroids antibiotics nebulized treatments. Patient counseled and educated regarding diet exercise weight loss. Patient is advised to follow up outpatient with a launch steward for outpatient sleep studies for possibility of sleep apnea/obesity hypoventilation syndrome. Otherwise while in the hospital patient's symptoms resolved. Oxygenating normally on room air. Therefore it is felt she can be safely discharged home with outpatient follow up as mentioned. Patient verbalized understanding of this, verbalized understanding over hospital diagnosis, treatment she received, discharge medications and agree with the discharge instructions and follow-up plan of care as outlined. Condition at Discharge: Stable Final Diagnosis/Problems List Asthma exacerbation, COVID-19, hypertension, morbid obesity BMI 50 Acute hypoxemic respiratory failure Pneumonia Atelectasis Asthma COVID Discharge Disposition: Home Discharge Instruct/Medications Diet: Consistent carbohydrate, Cardiac 2g Na,low cholest Activity: No Restrictions, As Tolerated Follow Up/Referral: He is going to be primary care physician next week and referral to launch steward for outpatient sleep studies Medications: As prescribed and home medications Scheduled Albuterol Sulfate (Ventolin Mdi), 180 MCG IN TID Amlodipine Besylate (Norvasc Tablet), 5 MG PO DAILY Amoxicillin & Pot Clavulanate (Augmentin), 1 TAB PO BID Famotidine (Pepcid AC), 20 MG PO DAILY Montelukast Sodium (Singulair), 10 MG PO HS Prednisone (Prednisone), 20 MG PO BID Miscellaneous Medications Cetirizine HCl (Cetirizine Hydrochloride), 10 MG PO, (Reported) Trazodone HCl (Trazodone Hydrochorlide), Unknown Dose PO, (Reported) Discharge Statement: "Patient was advised to return to the ER or call 911 if any headaches, dizziness, shortness of breath, chest pain, abdominal pain, bleeding, fevers, or worsening of medical condition. Patient was counseled about treatment plan, medications, possible side effects, patientverbalized understanding. All questions were answered to the best of my ability. This discharge took greater then 30 minutes in planning, reviewing documentation, counseling the patient, and discussing with other team members." ASSESSMENT ASSESSMENT Assessment Asthma exacerbation, COVID-19, hypertension, morbid obesity BMI 50 RENETTA PUENTE MD Dec 16, 2024 14:48
--- NOTE | 2024-12-16 18:21 | DVHPN2 ---
Progress Note - Dictate Date Seen: Dec 16, 2024 Has the PT tested + for MRSA If YES, has PT been informed?: No Medical Necessity Reason Pt with a Central, PICC or Fol: No vital signs Vital Sign Date Time Temp Pulse Resp B/P (MAP) Pulse Ox O2 Delivery O2 Flow Rate FiO2 12/16/24 15:59 36.3 12/16/24 15:03 146/107 12/16/24 14:14 96 Room Air* 0 21 12/16/24 14:14 75 18 Total Intake and Output 12/15/24 12/15/24 12/16/24 15:00 23:00 07:00 Intake Total 1150 ml 500 ml Balance 1150 ml 500 ml laboratory and microbiology Laboratory Tests 12/14/24 05:12 12/12/24 12:09 Test 12/14/24 05:12 Range/Units Serum Glucose 138 H 74-106 mg/dL Assessment/Plan Impression Acute hypoxemic respiratory failure Pneumonia Atelectasis Asthma COVID Patient seen and examined Events Low oxygen requirements On 2 liters nasal cannula No acute events Labs and imaging reviewed Management 02 as needed dc home f/up with primary Plan discussed with: Patient JAN HANCOCK MD Dec 16, 2024 18:21
== END 2024-12-16 17:05 | disposition home or self-care (01) | DRG 177 ==
LOC: ER 11:44 → OVERFLOW 19:23 → TELE-EAST 12-13 09:29
PROVIDERS: ADMIT Hospitalist; ATTEND Hospitalist
PROC: XW033E5 Introduction of Remdesivir Anti-infective into Peripheral Vein, Percutaneous Approach, New Technology Group 5 (ICD-10-PCS; principal; 2024-12-13)
PROC: 5A09357 Assistance with Respiratory Ventilation, Less than 24 Consecutive Hours, Continuous Positive Airway Pressure (ICD-10-PCS; 2024-12-14)
PROC: 5A09357 Assistance with Respiratory Ventilation, Less than 24 Consecutive Hours, Continuous Positive Airway Pressure (ICD-10-PCS; 2024-12-15)
PROC: 5A09357 Assistance with Respiratory Ventilation, Less than 24 Consecutive Hours, Continuous Positive Airway Pressure (ICD-10-PCS; 2024-12-16)
DX: U07.1 COVID-19 (principal); J12.82 Pneumonia due to coronavirus disease 2019; J96.01 Acute respiratory failure with hypoxia; J15.9 Unspecified bacterial pneumonia; J45.901 Unspecified asthma with (acute) exacerbation; J98.11 Atelectasis; E66.2 Morbid (severe) obesity with alveolar hypoventilation; Z68.43 Body mass index [BMI] 50.0-59.9, adult; Z87.891 Personal history of nicotine dependence
CPT/HCPCS: 36415; 71045; 80048; 80053; 80307; 81001; 81003; 84484; 85025; 85379; 87426; 87804; 93970; 94640; 94660; 96365; G0378